=== PATIENT | female | born 1995 | race Caucasian/White ===

== ENCOUNTER 2017-06-23 10:01 | Outpatient (CLI) | payer BC ==
[~2017-06-23 10:01] MED LIST: EPINEPHrine 1 MG/ML AMP ONE; Gadobenate Dimeglumine 529 MG/1 ML (20ML VIAL) ONE; Iopamidol 300 61% 30 ML VIAL ONE; Lidocaine 1% PF 10 ML AMP ONE
--- NOTE | 2017-06-23 12:46 | RAD ---
RIGHT SHOULDER ARTHROGRAM: HISTORY: Recurrent dislocation of the right shoulder. COMPARISON: None. TECHNIQUE: Consent obtained for a right shoulder arthrogram. The right shoulder was prepped and draped in a nichole rile fashion, and 1% Lidocaine buffered with sodium bicarbonate was used for local anesthesia. Under fluoroscopic guidance, a 22 gauge spinal needle was advanced into the joint space, and a total of 12 mL of the contrast admixture was administered. The patient tolerated the procedure well. No immedi ate or post procedure complications. FINDINGS: Three views of the right shoulder demonstrate degenerative change with irregularity involving the bon y glenoid. No evidence of fracture or dislocation. IMPRESSION: Successful right shoulder arthrogram. A total of 12 mL of the contrast admixture was administered in to the joint space. The patient tolerated the procedure well. No immediate or post procedure compli cations. POS: [facility]
--- NOTE | 2017-06-23 14:08 | MRI ---
MR ARTHROGRAM RIGHT SHOULDER WITH INTRAARTICULAR CONTRAST: 06/23/2017 PROVIDED CLINICAL HISTORY: Recurrent right shoulder dislocation. COMPARISON: No comparison examinations are currently available. FINDINGS: There is prominent metallic susceptibility artifact about the shoulder. There is evidence for prior glenoid labral repair. Normal appearing posterior labral tissue is not identified. There is contras t insinuation between the anterior-inferior glenoid labral tissue and the subjacent articular cartila ge. The anterior-inferior glenoid labral tissue appears somewhat diminutive and irregular. No focal articular cartilage defect is apparent. The components of the rotator cuff demonstrate no definite evidence for tear. There is nonvisualizat ion of the longhead biceps tendon. There is greater than physiologic subacromial/subdeltoid bursal fluid, which does not contain Gadolin ium based contrast material. There is patchy signal alteration present involving the infraspinatus muscle. Regional marrow and mu scular signal appear otherwise unremarkable, with the exception of some cortical cyst like changes se en within the humeral head, near the footplate. IMPRESSION: 1. Postoperative appearance of the glenoid labrum, as described above. 2. Nonvisualization of the longhead biceps tendon. 3. Greater than physiologic subacromial/subdeltoid bursal fluid, which does not contain Gadolinium b ased contrast material. This may reflect bursitis. 4. Patchy edema within the infraspinatus muscle, which may reflect muscular strain or denervation. POS: [facility]
== END 2017-06-23 10:02 | disposition home or self-care (01) ==
LOC: RAD 10:01
PROVIDERS: ATTEND Orthopaedic Surgery Sports Medicine
DX: M24.411 Recurrent dislocation, right shoulder (principal); R60.9 Edema, unspecified; Z98.890 Other specified postprocedural states
CPT/HCPCS: 23350; A9579; J0171; J7050